=== PATIENT | female | born 1975 | race Hispanic/Latino ===

== ENCOUNTER 2021-07-13 23:41 | Emergency (ER) | payer SELFPAY ==
[2021-07-14 00:44] LABS: Urine Blood Trace-lysed (Negative); Urine Glucose Trace (Negative); Urine Protein 2+ (Negative); Urine Specific Gravity 1.015 (1.005-1.030)
[2021-07-14 00:50] LABS: Absolute Lymphocytes (CBC) 2.6 K/uL (0.7-4.9); Basophils % 0.7 % (0-1.3); Hematocrit 36.8 % (36.0-45.0); MPV 9.5 fL (7.6-11.3); RBC Red Blood Cell Count 4.42 M/uL (3.86-4.86)
[2021-07-14 00:52] LABS: ALT/SGPT 15 U/L (12-78); AST/SGOT 15 U/L (15-37); Albumin 3.8 g/dL (3.4-5.0); Alkaline Phosphatase 99 U/L (45-117); BUN Blood Urea Nitrogen 19 mg/dL (7-18); Bicarbonate 27 mmol/L (21-32); Bilirubin Direct < 0.1 mg/dL (0-0.2); Bilirubin Total 0.2 mg/dL (0.2-1.0); Glucose Level 113 mg/dL (74-106); Lipase 144 U/L (73-393); Potassium 3.3 mmol/L (3.5-5.1); Protein, Total 7.3 g/dL (6.4-8.2); Sodium Level 143 mmol/L (136-145); Troponin I < 0.02 ng/mL (0.0-0.045)
[2021-07-14] MEDS ORDERED: NA CHLORIDE 0.9% 1,000 ML ONE (00:58)
[2021-07-14] MEDS ORDERED: MORPHINE 2 MG/ML SYR ONE (00:58)
[2021-07-14] MEDS ORDERED: ONDANSETRON 4 MG/2 ML VIAL ONE (01:05)
[2021-07-14 01:13] LABS: Urine Specific Gravity/Preg 1.015 (1.005-1.030)
[2021-07-14 01:27] LABS: Urine Bacteria <20 /HPF (<20); Urine RBC <5 /HPF (NONE SEEN)
--- NOTE | 2021-07-14 02:48 | EDPHYS ---
Physician Documentation [facility] Name: Dina Poole Age: 45 yrs Sex: Female : 1975 Arrival Date: 07/13/2021 Time: 23:49 Bed 13 Private MD: ED Physician Eris Camarena HPI: 07/14 00:15 This 45 yrs old Female presents to ER via Ambulatory with complaints of cp Abdominal Pain, Neck Pain, >24Hrs Old, Shortness Of Breath. 00:15 The patient presents with abdominal pain in the left upper quadrant. cp 00:15 Onset: The symptoms/episode began/occurred today. cp 00:15 Associated signs and symptoms: Pertinent positives: nausea, shortness of breath, cp Pertinent negatives: anorexia, chest pain, constipation, diarrhea, dysuria, fever, vomiting. The symptoms are described as achy. Patient also c/o right side upper back and neck pain times 3 days. Patient denies injury. 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 - Social history:: Smoking status: Patient denies any tobacco usage or history of. ROS: 00:18 Constitutional: Negative for body aches, chills, fever, poor PO intake. cp 00:18 Eyes: Negative for injury, pain, redness, and discharge. cp 00:18 ENT: Negative for drainage from ear(s), ear pain, sore throat, difficulty swallowing, difficulty handling secretions. 00:18 Cardiovascular: Negative for chest pain, edema, palpitations. 00:18 Respiratory: Negative for cough, shortness of breath, wheezing. 00:18 Abdomen/GI: Positive for abdominal pain, of the left upper quadrant, Negative for vomiting, diarrhea, constipation, anorexia. 00:18 Back: Positive for pain at rest, pain with movement, of the right trapezius and right scapular area, Negative for injury or acute deformity. 00:18 : Negative for urinary symptoms. 00:18 Neuro: Negative for altered mental status, dizziness, headache, numbness, weakness. 00:18 All other systems are negative. Exam: 00:20 Constitutional: The patient appears in no acute distress, alert, awake, cp non-diaphoretic, non-toxic, well developed, well nourished. 00:20 Head/Face: Normocephalic, atraumatic. cp 00:20 Eyes: Periorbital structures: appear normal, Conjunctiva: normal, no exudate, no injection, Sclera: no appreciated abnormality, Lids and lashes: appear normal, bilaterally. 00:20 ENT: External ear(s): are unremarkable, Nose: is normal, Mouth: Lips: moist, Oral mucosa: pink and intact, moist, Posterior pharynx: Airway: no evidence of obstruction, patent. 00:20 Neck: C-spine: vertebral tenderness, is not appreciated, crepitus, is not appreciated. 00:20 Chest/axilla: Inspection: normal, Palpation: is normal, no crepitus, no tenderness. 00:20 Cardiovascular: Rate: normal, Rhythm: regular, Heart sounds: murmur, not appreciated. 00:20 Respiratory: the patient does not display signs of respiratory distress, Respirations: normal, no use of accessory muscles, no retractions, labored breathing, is not present, Breath sounds: are clear throughout, no decreased breath sounds, no stridor, no wheezing. 00:20 Abdomen/GI: Inspection: abdomen appears normal, Bowel sounds: active, all quadrants, Palpation: soft, in all quadrants, mild abdominal tenderness, in the left upper quadrant, rebound tenderness, is not appreciated, voluntary guarding, is not appreciated, involuntary guarding, is not appreciated. 00:20 Back: pain, that is mild, of the right trapezius and right scapular area, ROM is normal, CVA tenderness, is absent, vertebral tenderness, is not appreciated. 00:20 Skin: cellulitis, is not appreciated, no rash present. 00:20 Neuro: Orientation: to person, place \T\ time. Mentation: is normal, Motor: moves all fours, strength is normal, Sensation: is normal. 01:11 ECG was reviewed by the Attending Physician. cp Vital Signs: 00:04 BP 136 / 77; Pulse 80; Resp 18 S; Temp 97.5(O); Pulse Ox 100% on R/A; Weight 55.34 kg bb (R); Height 5 ft. 3 in. (160.02 cm) (R); Pain 5/10; 00:44 BP 122 / 90; Pulse 78; Resp 18; Pulse Ox 99% on R/A; lh3 03:50 BP 106 / 65; Pulse 59; Resp 18; Pulse Ox 100% on R/A; lh3 00:04 Body Mass Index 21.61 (55.34 kg, 160.02 cm) bb MDM: 00:09 Patient medically screened. cp 00:30 Differential diagnosis: cholecystitis, Cholelithiasis, gastritis, non-specific abd cp pain, Peptic Ulcer Disease, Perf. Duodenal Ulcer, Perf. Gastric Ulcer, Pyelonephritis, Ureterolithiasis, urinary tract infection. 02:45 Data reviewed: vital signs, nurses notes, lab test result(s), EKG, radiologic studies, cp plain films, ultrasound. 02:45 Test interpretation: by ED physician or midlevel provider: ECG, plain radiologic cp studies. Counseling: I had a detailed discussion with the patient and/or guardian regarding: the historical points, exam findings, and any diagnostic results supporting the discharge/admit diagnosis, lab results, radiology results, to return to the emergency department if symptoms worsen or persist or if there are any questions or concerns that arise at home. Response to treatment: the patient's symptoms have markedly improved after treatment, VSS. Pain markedly improved with meds and patient observed resting comfortably in exam room. 07/14 00:11 Order name: Basic Metabolic Panel; Complete Time: 02:14 cp 07/14 02:38 Interpretation: Normal except: K 3.3; CL 110; GLUC 113; BUN 19; GFR 87. cp 07/14 00:11 Order name: CBC with Diff; Complete Time: 02:14 cp 07/14 02:39 Interpretation: Normal except: RDW 15.7; EOSINOPHIL % 8.0; EOSA 0.6. cp 07/14 00:11 Order name: Hepatic Function; Complete Time: 02:14 cp 07/14 00:11 Order name: Lipase; Complete Time: 02:14 cp 07/14 00:11 Order name: Urine Microscopic Only; Complete Time: 02:14 cp 07/14 00:11 Order name: D-Dimer; Complete Time: 02:14 cp 07/14 00:11 Order name: Troponin I; Complete Time: 02:14 cp 07/14 00:34 Order name: US Abdomen Limited: liver/gallbladder cp 07/14 00:44 Order name: Urine Dipstick-Ancillary; Complete Time: 02:14 EDMS 07/14 02:39 Interpretation: Normal except: UKET Trace; UBLD Trace-lysed; UPROT 2+; U NIT Positive; cp UESTR 3+. 07/14 00:46 Order name: Urine --Ancillary (enter results); Complete Time: 02:14 oe 07/14 01:30 Order name: Urine Culture EDMS 07/14 02:15 Order name: XRAY Chest (1 view) cp 07/14 00:11 Order name: IV Saline Lock; Complete Time: 00:31 cp 07/14 00:11 Order name: Labs collected and sent; Complete Time: 00:31 cp 07/14 00:11 Order name: Urine Dipstick-Ancillary (obtain specimen); Complete Time: 00:44 cp 07/14 00:11 Order name: Urine Test (obtain specimen); Complete Time: 00:44 cp 07/14 00:11 Order name: EKG; Complete Time: 00:12 cp 07/14 00:11 Order name: EKG - Nurse/Tech; Complete Time: 01:12 cp EC:11 Rate is 62 beats/min. Rhythm is regular. WV interval is normal. QRS interval is normal. cp QT interval is normal. T waves are Inverted in lead aVR. Interpreted by me. Reviewed by me. Administered Medications: 00:20 Drug: Zofran (Ondansetron) 4 mg Route: IVP; Site: right forearm; 3 03:04 Follow up: Response: No adverse reaction lh3 03:52 Follow up: Response: No adverse reaction 3 00:43 Drug: NS 0.9% 1000 ml Route: IV; Rate: 1 bolus; Site: left forearm; 3 03:02 Follow up: Response: No adverse reaction; IV Status: Completed infusion 3 00:43 Drug: morphine 2 mg Route: IVP; Site: left forearm; 3 03:02 Follow up: Response: No adverse reaction 3 03:01 Drug: Rocephin (cefTRIAXone) 1 grams Route: IV; Rate: calculated rate; Site: right [facility] forearm; 03:03 Follow up: IV Status: Completed infusion 3 03:52 Follow up: IV Status: Completed infusion 3 03:04 Drug: Potassium Effervescent Tablet 50 mEq Route: PO; 3 03:52 Follow up: Response: No adverse reaction 3 Disposition: 05:32 Co-signature as Attending Physician, Eris Camarena MD. 7 Disposition Summary: 07/14/21 02:47 Discharge Ordered Location: Home cp Problem: new cp Symptoms: have improved cp Condition: Stable cp Diagnosis - UTI/ Urinary tract infection, site not specified cp - Cervicalgia cp Followup: cp - With: Private Physician - When: 2 - 3 days - Reason: Recheck today's complaints Discharge Instructions: - Discharge Summary Sheet cp - Musculoskeletal Pain cp - Urinary Tract Infection, Adult cp - Neck Exercises cp Forms: - Medication Reconciliation Form cp - Thank You Letter cp - Antibiotic Education cp - Prescription Opioid Use cp Prescriptions: - Augmentin 875-125 mg Oral Tablet - take 1 tablet by ORAL route every 12 hours for 7 days; 14 tablet; Refills: 0, cp Product Selection Permitted - Cyclobenzaprine 10 mg Oral Tablet - take 1 tablet by ORAL route every 8 hours As needed; 20 tablet; Refills: 0, cp Product Selection Permitted - Diclofenac Sodium 75 mg Oral tablet,delayed release (DR/EC) - take 1 tablet by ORAL route 2 times per day; 20 tablet; Refills: 0, Product cp Selection Permitted Signatures: Dispatcher [employer] Margarita Dumont RN RN Robby George PA PA cp Eris Camarena MD MD [facility] Kalpana Lange RN RN 3 Corrections: (The following items were deleted from the chart) 02:39 02:38 Normal except: RDW 15.7. cp cp
--- NOTE | 2021-07-14 02:48 | ER ---
Nurse's Notes [facility] Name: Dina Poole Age: 45 yrs Sex: Female : 1975 Arrival Date: 07/13/2021 Time: 23:49 Bed 13 Private MD: Diagnosis: UTI/ Urinary tract infection, site not specified;Cervicalgia Presentation: 07/14 00:04 Chief complaint: Patient states: she started having neck pain 3 days ago, now she is bb having abdominal pain and difficulty breathing denies vomiting or diarrhea but is nauseous, denies fever. Coronavirus screen: difficulty breathing. Ebola Screen: No symptoms or risks identified at this time. Initial Sepsis Screen: Does the patient meet any 2 criteria? No. Patient's initial sepsis screen is negative. Does the patient have a suspected source of infection? No. Patient's initial sepsis screen is negative. Risk Assessment: Do you want to hurt yourself or someone else? Patient reports no desire to harm self or others. Onset of symptoms was July 11, 2021. 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 - Social history:: Smoking status: Patient denies any tobacco usage or history of. Screenin:44 Abuse screen: Denies threats or abuse. Nutritional screening: No deficits noted. 3 Tuberculosis screening: No symptoms or risk factors identified. Fall Risk IV access (20 points). Assessment: 00:44 General: Appears in no apparent distress. Behavior is calm, cooperative, appropriate lh3 for age. Pain: Pain level that patient reports is acceptable is 7 out of 10 on a pain scale. GI: Bowel sounds present X 4 quads. Abd is soft X 4 quads Abd is non tender X 4 quads. 00:44 Pain: Complains of pain in left upper quadrant. 3 Vital Signs: 00:04 BP 136 / 77; Pulse 80; Resp 18 S; Temp 97.5(O); Pulse Ox 100% on R/A; Weight 55.34 kg bb (R); Height 5 ft. 3 in. (160.02 cm) (R); Pain 5/10; 00:44 BP 122 / 90; Pulse 78; Resp 18; Pulse Ox 99% on R/A; lh3 03:50 BP 106 / 65; Pulse 59; Resp 18; Pulse Ox 100% on R/A; lh3 00:04 Body Mass Index 21.61 (55.34 kg, 160.02 cm) ED Course: 07/13 23:49 Patient arrived in ED. ja2 07/14 00:03 Robby Cruz PA is PHCP. cp 00:04 Eris Camarena MD is Attending Physician. cp 00:05 Kalpana Lange, LANA is Primary Nurse. lh3 00:06 Triage completed. bb 00:06 Arm band placed on Patient placed in an exam room, on a stretcher, on pulse oximetry. bb Family accompanied patient. 00:31 Basic Metabolic Panel Sent. lh3 00:31 CBC with Diff Sent. lh3 00:31 Hepatic Function Sent. lh3 00:31 Troponin I Sent. lh3 00:31 D-Dimer Sent. lh3 00:44 Patient has correct armband on for positive identification. Bed in low position. Call [facility] light in reach. Side rails up X 1. Door closed. Noise minimized. Warm blanket given. Verbal reassurance given. Head of bed elevated. 00:44 Urine Microscopic Only Sent. lh3 00:44 No provider procedures requiring assistance completed. Inserted saline lock: 20 gauge lh3 in right wrist, using aseptic technique. 01:09 US Abdomen Limited: liver/gallbladder In Process Unspecified. EDMS 02:26 XRAY Chest (1 view) In Process Unspecified. EDMS 03:50 IV discontinued, bleeding controlled, No redness/swelling at site. Pressure dressing lh3 applied. Administered Medications: 00:20 Drug: Zofran (Ondansetron) 4 mg Route: IVP; Site: right forearm; lh3 03:04 Follow up: Response: No adverse reaction lh3 03:52 Follow up: Response: No adverse reaction 3 00:43 Drug: NS 0.9% 1000 ml Route: IV; Rate: 1 bolus; Site: left forearm; 3 03:02 Follow up: Response: No adverse reaction; IV Status: Completed infusion 3 00:43 Drug: morphine 2 mg Route: IVP; Site: left forearm; 3 03:02 Follow up: Response: No adverse reaction 3 03:01 Drug: Rocephin (cefTRIAXone) 1 grams Route: IV; Rate: calculated rate; Site: right lh3 forearm; 03:03 Follow up: IV Status: Completed infusion 3 03:52 Follow up: IV Status: Completed infusion 3 03:04 Drug: Potassium Effervescent Tablet 50 mEq Route: PO; 3 03:52 Follow up: Response: No adverse reaction [facility] Outcome: 02:47 Discharge ordered by MD. cp 03:50 Discharged to home ambulatory, with family. [facility] 03:50 Condition: good 03:50 Discharge instructions given to family, Instructed on discharge instructions, follow up and referral plans. medication usage, Demonstrated understanding of instructions, follow-up care, medications, Prescriptions given X 3. 03:53 Patient left the ED. [facility] Signatures: Dispatcher [employer] EDMargarita Loja RN RN Robby George, OBIE PA Kalpana Hui RN RN 3 Chiquita Ames
[2021-07-14] MEDS ORDERED: POTASSIUM 25 MEQ EFFERV TAB ONE (03:17)
[2021-07-14] MEDS ORDERED: CEFTRIAXONE 1000 MG/VIAL ONE (03:17)
[2021-07-14 03:59] VITALS: TEMP 97.5
[2021-07-14 04:01] VITALS: BP 106/65; O2SAT 100
--- NOTE | 2021-07-14 07:36 | RAD REPORT ---
EXAM DESCRIPTION: John Single View07/14/2021 2:26 am CLINICAL HISTORY: Chest pain/back pain COMPARISON: none FINDINGS: The lungs appear clear of acute infiltrate. The heart is normal size IMPRESSION: No acute abnormalities displayed
--- NOTE | 2021-07-14 08:32 | RAD REPORT ---
EXAM DESCRIPTION: US - Abdomen Exam Limited - 07/14/2021 1:09 am CLINICAL HISTORY: Abdominal pain. COMPARISON: None. FINDINGS: The patient was not NPO which limits evaluation somewhat. The gallbladder wall is not thickened. A gallstone is not seen. The biliary tree is normal caliber. IMPRESSION: No abnormality displayed
== END 2021-07-14 03:53 | disposition home or self-care (01) ==
LOC: ER 23:41
DX: N39.0 Urinary tract infection, site not specified (principal); M54.2 Cervicalgia
CPT/HCPCS: 36415; 71045; 76705; 80048; 80076; 81003; 81015; 81025; 83690; 84484; 85025; 85379; 87086; 87088; 96361; 96374; 96375; 99284; J2270; J2405; J7030